=== PATIENT | male | born 1965 | race Hispanic/Latino ===

== ENCOUNTER 2018-02-06 09:19 | Emergency (ER) | payer OTHER ==
--- NOTE | 2018-02-06 09:42 | Emergency Department Report ---
ED General Adult HPI - General Stated complaint: CHEST PAIN Time Seen by Provider: 02/06/18 09:40 - History of Present Illness Initial comments: 52-year-old male presents after being referred from his primary care physician for chest pain. Patient was initially being seen in the primary care setting for possible panic attack. Patient had lost 2 friends unexpectedly about 4 days ago and started binge drinking. Patient has been unable to sleep. Patient states that he took 2 sleeping pills last night and was unable to sleep and continued to pace. Patient states that he took 2 more sleeping pills which were [id number] possibly name Sominex, and was still unable to sleep prior to his visit to his primary care doctor today. In the primary care setting patient was noted to have an elevated blood pressure and elevated heart rate and was sent to the emergency department for evaluation and treatment.. Patient denies any history of DVT or PE. Patient denies any recent long trips. Patient states he has had no leg pain and denies hemoptysis. Patient states that he noted his heart rate being 118 while in the clinic. - Related Data Previous Rx's Medication Instructions Recorded Last Taken Type LORazepam [Ativan] 0.5 mg PO Q6H PRN #10 tablet 02/06/18 Unknown Rx Allergies Allergy/AdvReac Type Severity Reaction Status Date / Time No Known Allergies Allergy Verified 02/06/18 09:43 ED Review of Systems ROS: Stated complaint: CHEST PAIN Other details as noted in HPI Constitutional: denies: chills, fever Eyes: denies: eye pain, eye discharge, vision change ENT: denies: ear pain, throat pain Respiratory: denies: cough, shortness of breath, wheezing Cardiovascular: chest pain. denies: palpitations Endocrine: no symptoms reported Gastrointestinal: denies: abdominal pain, nausea, diarrhea Genitourinary: denies: urgency, dysuria Musculoskeletal: denies: back pain, joint swelling, arthralgia Skin: denies: rash, lesions Neurological: denies: headache, weakness, paresthesias Psychiatric: denies: anxiety, depression Hematological/Lymphatic: denies: easy bleeding, easy bruising ED Past Medical Hx - Medications Home Medications: Home Medications Medication Instructions Recorded Confirmed Last Taken Type LORazepam [Ativan] 0.5 mg PO Q6H PRN #10 tablet 02/06/18 Unknown Rx ED Physical Exam - General General appearance: alert, in no apparent distress - Head Head exam: Present: atraumatic, normocephalic - Eye Eye exam: Present: normal appearance - ENT ENT exam: Present: mucous membranes moist - Neck Neck exam: Present: normal inspection - Respiratory Respiratory exam: Present: normal lung sounds bilaterally. Absent: respiratory distress - Cardiovascular Cardiovascular Exam: Present: regular rate, normal rhythm. Absent: systolic murmur, diastolic murmur, rubs, gallop - GI/Abdominal GI/Abdominal exam: Present: soft, normal bowel sounds - Rectal Rectal exam: Present: deferred - Extremities Exam Extremities exam: Present: normal inspection - Back Exam Back exam: Present: normal inspection - Neurological Exam Neurological exam: Present: alert, oriented X3 - Psychiatric Psychiatric exam: Present: normal affect, normal mood - Skin Skin exam: Present: warm, dry, intact, normal color. Absent: rash ED Course Vital Signs 02/06/18 02/06/18 02/06/18 09:23 09:31 09:34 Temperature 98.4 F 98.4 F Pulse Rate 76 76 Respiratory 15 15 Rate Blood Pressure 168/102 Blood Pressure 168/102 168/102 [Right] O2 Sat by Pulse 97 100 97 Oximetry 02/06/18 02/06/18 02/06/18 09:45 10:00 10:16 Temperature Pulse Rate 70 72 70 Respiratory 17 12 21 Rate Blood Pressure 160/103 160/103 148/97 Blood Pressure [Right] O2 Sat by Pulse 97 97 98 Oximetry 02/06/18 02/06/18 02/06/18 10:30 10:45 11:00 Temperature Pulse Rate 66 77 66 Respiratory 14 13 18 Rate Blood Pressure 153/90 166/99 149/96 Blood Pressure [Right] O2 Sat by Pulse 97 97 97 Oximetry 02/06/18 02/06/18 02/06/18 11:15 11:30 11:43 Temperature Pulse Rate 83 91 H 91 H Respiratory 12 12 12 Rate Blood Pressure 163/100 151/108 Blood Pressure 151/108 [Right] O2 Sat by Pulse 98 96 96 Oximetry 02/06/18 02/06/18 11:45 12:00 Temperature Pulse Rate 68 69 Respiratory 19 19 Rate Blood Pressure 148/100 152/96 Blood Pressure [Right] O2 Sat by Pulse 97 97 Oximetry ED Medical Decision Making - Lab Data Result diagrams: 02/06/18 09:50 02/06/18 09:48 - EKG Data EKG shows normal: sinus rhythm Rate: normal - EKG Data When compared to previous EKG there are: no significant change Interpretation: no acute changes - Medical Decision Making Patient improved while here in the emergency department. Low suspicion for acute cardiopulmonary pathology patient to be discharged to follow up with his primary care physician. Critical care attestation.: If time is entered above; I have spent that time in minutes in the direct care of this critically ill patient, excluding procedure time. ED Disposition Clinical Impression: Chest pain Disposition: DC-01 TO HOME OR SELFCARE Is pt being admited?: No Condition: Stable Instructions: Chest Pain (ED) Prescriptions: LORazepam [Ativan] 0.5 mg PO Q6H PRN #10 tablet PRN Reason: Anxiety Referrals: PRIMARY CARE, [Primary Care Provider] - 3-5 Days Time of Disposition: 12:21 Print Language: PRYDEINIG
[2018-02-06] MEDS ORDERED: ASPIRIN PO ONE (09:43)
[2018-02-06 10:01] LABS: Basophils % (Auto) 0.3 % (0.0-1.8); Eosinophils % (Auto) 0.6 % (0.0-4.3); Hematocrit 46.9 % (35.5-45.6); Hemoglobin 16.2 gm/dl (11.8-15.2); Lymphocytes # (Auto) 0.8 K/mm3 (1.2-5.4); Lymphocytes % (Auto) 11.9 % (13.4-35.0); Mean Corpuscular HGB Conc 35 % (32-34); Mean Corpuscular Hemoglobin 32 pg (28-32); Mean Corpuscular Volume 93 fl (84-94); Monocytes # (Auto) 0.9 K/mm3 (0.0-0.8); Monocytes % (Auto) 12.6 % (0.0-7.3); Platelet Count 176 K/mm3 (140-440); Red Blood Count 5.07 M/mm3 (3.65-5.03); Red Cell Distribution Width 13.5 % (13.2-15.2)
[2018-02-06] MEDS ORDERED: ATIVAN PO ONE (10:07)
[2018-02-06 10:16] LABS: BUN/Creatinine Ratio 10; Blood Urea Nitrogen 8 mg/dL (9-20); Calcium 9.5 mg/dL (8.4-10.2); Hemolysis Index 35
--- NOTE | 2018-02-06 10:58 | XRay Report ---
AP CHEST: HISTORY: chest pain AP view of the chest demonstrates a normal mediastinal and cardiac contour with clear lungs and normal bony and soft tissue structures. IMPRESSION: Unremarkable AP chest.
[2018-02-06 15:32] VITALS: BP 150/79
== END 2018-02-06 15:01 | disposition home or self-care (01) ==
LOC: ED 09:19
DX: R07.89 Other chest pain (principal)
CPT/HCPCS: 36415; 71045; 80048; 82550; 84484; 85025; 85379; 93005; 93010